=== PATIENT | male | born 1965 | race Native Hawaiian/Other Pacific Islander ===

== ENCOUNTER 2016-04-22 14:11 | Outpatient (CLI) | payer OTHER ==
[~2016-04-22 14:11] MED LIST: ACET7.5T70 PO; ALBU90AE13 INH; ALBUTEROL0.083 % IN; BENADRYL25 M1 OR; COLC0.6T6 PO; DULO60CA2 OR; FERROUS SULF325 M1 OR; MICARDIS40 MG PO; MULTIVITAMI1 PO; NEXIUM40 M1 PO; SIMV20TA2 PO; TIOTCAP2 INH; TIZA4TAB5 PO; TRAM50TA PO; ZOLP10TA2 PO
[2016-04-22 15:42] LABS: PLATELET COUNT 168 K/uL (142-355)
[2016-04-22 17:08] LABS: POTASSIUM 3.9 mmol/L (3.6-5.2); SODIUM 136 mmol/L (136-145)
== END 2016-04-22 19:20 | disposition home or self-care (01) ==
LOC: LAB 14:11
PROVIDERS: Nurse Practitioner Family
DX: E78.2 Mixed hyperlipidemia (principal); I10 Essential (primary) hypertension; M15.0 Primary generalized (osteo)arthritis; Z79.899 Other long term (current) drug therapy; Z51.81 Encounter for therapeutic drug level monitoring
CPT/HCPCS: 80053; 80061; 83036; 84439; 84443; 85027

== ENCOUNTER 2017-06-09 11:29 | Outpatient (CLI) | payer OTHER ==
[2017-06-09 12:02] LABS: PLATELET COUNT 188 K/uL (142-355)
== END 2017-06-09 12:30 | disposition home or self-care (01) ==
LOC: LABW 11:29
PROVIDERS: Nurse Practitioner Family
DX: Z79.899 Other long term (current) drug therapy (principal); Z51.81 Encounter for therapeutic drug level monitoring
CPT/HCPCS: 36415; 85027

== ENCOUNTER 2017-06-14 08:23 | Outpatient (CLI) | payer OTHER ==
[2017-06-14 09:08] LABS: POTASSIUM 3.5 mmol/L (3.6-5.2)
== END 2017-06-14 19:57 | disposition home or self-care (01) ==
LOC: LABW 08:23
PROVIDERS: Nurse Practitioner Family
DX: B36.0 Pityriasis versicolor (principal)
CPT/HCPCS: 36415; 80053

== ENCOUNTER 2017-07-26 14:44 | Outpatient (CLI) | payer OTHER ==
[2017-07-26 15:20] LABS: PLATELET COUNT 176 K/uL (142-355)
[2017-07-26 15:50] LABS: POTASSIUM 4.2 mmol/L (3.6-5.2)
== END 2017-07-26 22:32 | disposition home or self-care (01) ==
LOC: LAB 14:44
PROVIDERS: Nurse Practitioner Family
DX: I10 Essential (primary) hypertension (principal); K21.9 Gastro-esophageal reflux disease without esophagitis; Z79.899 Other long term (current) drug therapy; Z51.81 Encounter for therapeutic drug level monitoring; E66.01 Morbid (severe) obesity due to excess calories; E55.9 Vitamin D deficiency, unspecified
CPT/HCPCS: 80053; 80061; 83036; 84436; 84443; 85027

== ENCOUNTER 2020-03-04 09:08 | Outpatient (CLI) | payer OTHER | END 2020-03-04 22:24 | disposition home or self-care (01) | LOC: CT 09:08 | PROVIDERS: ATTEND Internal Medicine Sleep Medicine | DX: Z87.891 Personal history of nicotine dependence (principal) | CPT/HCPCS: G0297-TC ==

== ENCOUNTER 2020-07-28 11:59 | Emergency (ER) | payer OTHER ==
[~2020-07-28] VITALS: Ht 177.8 cm; Wt 109.8 kg
[2020-07-28 12:03] VITALS: TEMP 98.5
[2020-07-28 13:35] LABS: PLATELET COUNT 65 K/uL (142-355)
[2020-07-28 13:36] LABS: POTASSIUM 3.5 mmol/L (3.6-5.2)
[2020-07-28 17:35] VITALS: BP 115/75
== END 2020-07-28 17:40 | disposition short-term general hospital (02) ==
LOC: ED 11:59
PROVIDERS: Emergency Medicine Emergency Medical Services
DX: R07.89 Other chest pain (principal); R06.09 Other forms of dyspnea; D72.828 Other elevated white blood cell count; Z20.822 Contact with and (suspected) exposure to COVID-19
CPT/HCPCS: 80053; 81000; 84484; 85007; 85027; 85379; 85610; 87040; 87205; 87635; 93005; 96360; 96365; 96366; 96375; 99284; J0696; J1644; Q9963; U0003

== ENCOUNTER 2020-08-14 10:22 | Outpatient (CLI) | payer OTHER | END 2020-08-14 23:18 | disposition home or self-care (01) | LOC: US 10:22 | PROVIDERS: ATTEND Nurse Practitioner Family | DX: R59.9 Enlarged lymph nodes, unspecified (principal); R78.81 Bacteremia; R05 Cough ==

== ENCOUNTER 2020-11-01 20:07 | Inpatient (IN) | payer OTHER ==
[2020-11-01] VITALS (8 sets, daily range): BP systolic 80–116; BP diastolic 31–54; TEMP 99.2–99.7
[~2020-11-01] VITALS: Ht 182.9 cm; Wt 99.8 kg
[2020-11-01 21:36] LABS: POTASSIUM 5.5 mmol/L (3.6-5.2)
[2020-11-01 21:57] LABS: PLATELET COUNT 178 K/uL (142-355)
[2020-11-01 22:22] LABS: PARTIAL THROMBOPLASTIN TIME 27.4 SECONDS (24.5-33.6)
[2020-11-02] VITALS (85 sets, daily range): BP systolic 11–139; BP diastolic 41–68; TEMP 98–99.7; Ht 182.9 cm; Wt 99.8 kg
[2020-11-02 05:27] LABS: PLATELET COUNT 177 K/uL (142-355)
[2020-11-02 05:48] LABS: POTASSIUM 4.9 mmol/L (3.6-5.2)
[2020-11-02] MEDS ORDERED: ACID REDUCER20 MG PO (10:54)
[2020-11-02] MEDS ORDERED: LEVO-T25 MCG PO (10:56)
[2020-11-02] MEDS ORDERED: MONTELUKAST SOD10 MG PO (10:57)
[2020-11-02] MEDS ORDERED: GABA300C2 PO (10:58)
[2020-11-02] MEDS ORDERED: HYDR25TA60 PO (11:04)
[2020-11-02] MEDS ORDERED: D350 MCG PO (11:12)
[2020-11-02] MEDS ORDERED: ASCO500T18 PO (11:15)
[2020-11-02] MEDS ORDERED: B-100 PO (11:15)
[2020-11-02] MEDS ORDERED: FLONASE AL50 MCG/ACT NAS (11:16)
[2020-11-02] MEDS ORDERED: STIOLTO RESPIMA1 AER INH (11:17)
[2020-11-02] MEDS ORDERED: TRAZODONE HYDRO50 MG PO (11:30)
[2020-11-02] MEDS ORDERED: LOSA50TA PO (11:32)
[2020-11-02 11:48] LABS: PLATELET COUNT 192 K/uL (142-355)
[2020-11-02] MEDS ORDERED: [UNRECOGNIZED DRUG - OTHER] PO (11:51)
[2020-11-02 18:08] LABS: PLATELET COUNT 184 K/uL (142-355)
[2020-11-03] VITALS (24 sets, daily range): BP systolic 108–137; BP diastolic 57–75; TEMP 97.2–99.5
[2020-11-03 06:24] LABS: POTASSIUM 5.1 mmol/L (3.6-5.2)
[2020-11-03 06:27] LABS: PLATELET COUNT 164 K/uL (142-355)
[2020-11-04] VITALS (10 sets, daily range): BP systolic 128–146; BP diastolic 61–86; TEMP 98–98.9
[2020-11-04 05:38] LABS: PLATELET COUNT 155 K/uL (142-355)
[2020-11-04 06:39] LABS: POTASSIUM 4.8 mmol/L (3.6-5.2)
[2020-11-05] VITALS: BP 125/82; TEMP 98.7
[2020-11-05 04:00] VITALS: BP 125/72; TEMP 97.7
[2020-11-05 05:37] LABS: PLATELET COUNT 157 K/uL (142-355)
[2020-11-05 05:50] LABS: POTASSIUM 5.2 mmol/L (3.6-5.2)
[2020-11-05 08:00] VITALS: BP 145/86; TEMP 97.7
[2020-11-05 12:36] VITALS: BP 149/89; TEMP 98.3
[2020-11-05 16:33] VITALS: BP 135/81; TEMP 98.7
[2020-11-05 20:00] VITALS: BP 147/75; TEMP 98.7
[2020-11-06] VITALS: BP 114/58; BP 130/85; TEMP 101; TEMP 98.4
[2020-11-06 06:09] LABS: POTASSIUM 4.5 mmol/L (3.6-5.2)
[2020-11-06 08:18] VITALS: BP 136/80; TEMP 99.9
[2020-11-06 13:12] VITALS: BP 133/71; TEMP 101.2
[2020-11-06 17:06] VITALS: BP 112/61; TEMP 99.8
[2020-11-06 18:27] LABS: PLATELET COUNT 139 K/uL (142-355)
[2020-11-06 20:00] VITALS: BP 133/64; TEMP 99.2
[2020-11-07] VITALS: BP 120/65; TEMP 100.2
[2020-11-07 04:00] VITALS: BP 144/64; TEMP 98.7
[2020-11-07 05:03] LABS: PLATELET COUNT 92 K/uL (142-355)
[2020-11-07 05:16] LABS: POTASSIUM 3.8 mmol/L (3.6-5.2)
[2020-11-07 16:00] VITALS: BP 120/47; TEMP 100.6
[2020-11-07 20:00] VITALS: BP 115/61; TEMP 100.8
[2020-11-08] VITALS (8 sets, daily range): BP systolic 104–141; BP diastolic 44–65; TEMP 98.3–100.9
[2020-11-08 05:54] LABS: PLATELET COUNT 96 K/uL (142-355)
[2020-11-09] VITALS (25 sets, daily range): BP systolic 97–158; BP diastolic 41–89; TEMP 98.3–100.5
[2020-11-09 04:57] LABS: POTASSIUM 4.2 mmol/L (3.6-5.2)
[2020-11-09 21:42] LABS: PLATELET COUNT 132 K/uL (142-355)
[2020-11-10] VITALS (7 sets, daily range): BP systolic 98–122; BP diastolic 42–56; TEMP 98.4–99
== END 2020-11-10 15:30 | disposition home or self-care (01) | DRG 177 ==
LOC: ED 20:07 → ICU 11-02 00:01 → MED/SURG 11-04 15:11 → PCU 11-08 15:00
PROVIDERS: Emergency Medicine; Internal Medicine; ADMIT Internal Medicine Endocrinology, Diabetes & Metabolism; ATTEND Internal Medicine Endocrinology, Diabetes & Metabolism
PROC: 30233N1 Transfusion of Nonautologous Red Blood Cells into Peripheral Vein, Percutaneous Approach (ICD-10-PCS; principal; 2020-11-02)
PROC: 30233N1 Transfusion of Nonautologous Red Blood Cells into Peripheral Vein, Percutaneous Approach (ICD-10-PCS; 2020-11-03)
DX: U07.1 COVID-19 (principal); J96.01 Acute respiratory failure with hypoxia; I21.4 Non-ST elevation (NSTEMI) myocardial infarction; E43 Unspecified severe protein-calorie malnutrition; R65.21 Severe sepsis with septic shock; C91.10 Chronic lymphocytic leukemia of B-cell type not having achieved remission; D61.818 Other pancytopenia; N17.8 Other acute kidney failure; E87.1 Hypo-osmolality and hyponatremia; D64.89 Other specified anemias; Z68.32 Body mass index [BMI] 32.0-32.9, adult; F41.8 Other specified anxiety disorders; E87.5 Hyperkalemia; I95.89 Other hypotension
CPT/HCPCS: 36415; 36430; 80048; 80053; 82272; 82550; 83880; 84484; 85007; 85027; 85379; 85610; 85730; 86850; 86900; 86901; 86922; 87635; 93005; 94760; 96361; 96365; 96366; 99285; J0132; J0456; J0696; J1100; J1644; J1650; J1940; J1956; J2060; J2270; J3490; P9016; P9047; U0003

== ENCOUNTER 2021-03-23 10:30 | Outpatient (CLI) | payer OTHER ==
[~2021-03-23 10:30] MED LIST changes: +ACID REDUCER20 MG PO; +ASCO500T18 PO; +B-100 PO; +D350 MCG PO; +FLONASE AL50 MCG/ACT NAS; +GABA300C2 PO; +HYDR25TA60 PO; +LEVO-T25 MCG PO; +LOSA50TA PO; +MONTELUKAST SOD10 MG PO; +STIOLTO RESPIMA1 AER INH; +TRAZODONE HYDRO50 MG PO; +[UNRECOGNIZED DRUG - OTHER] PO
== END 2021-03-23 19:01 | disposition home or self-care (01) ==
LOC: CT 10:30
PROVIDERS: ATTEND Internal Medicine Sleep Medicine
DX: J43.9 Emphysema, unspecified (principal); Z87.891 Personal history of nicotine dependence

== ENCOUNTER 2021-07-01 09:39 | Outpatient (CLI) | payer OTHER ==
[2021-07-01 10:40] LABS: PLATELET COUNT 145 K/uL (142-355)
[2021-07-01 11:12] LABS: POTASSIUM 3.8 mmol/L (3.6-5.2)
== END 2021-07-01 18:58 | disposition home or self-care (01) ==
LOC: LABW 09:39
PROVIDERS: ATTEND Internal Medicine
DX: N18.31 Chronic kidney disease, stage 3a (principal); R53.83 Other fatigue; M10.09 Idiopathic gout, multiple sites; Z79.899 Other long term (current) drug therapy; E53.8 Deficiency of other specified B group vitamins; R79.89 Other specified abnormal findings of blood chemistry
CPT/HCPCS: 36415; 80053; 81000; 82043; 82330; 82550; 82570; 82607; 82728; 82746; 83036; 83540; 83550; 83735; 83970; 84100; 84155; 84439; 84443; 84550; 85027; 85652; 86038; 86140